=== PATIENT | male | born 1965 | race Caucasian/White ===

== ENCOUNTER 2021-06-30 11:50 | Observation (INO) ==
[2021-06-30] MEDS ORDERED: fentaNYL citrate 100 MCG/2 ML VIAL ONE ×3 (11:56→17:42)
[2021-06-30] MEDS ORDERED: SODIUM CHLORIDE 0.9% 1000ML 1,000 ML IV ONE (11:58)
[2021-06-30] MEDS ORDERED: MoRPHine SULFATE 4 MG/ML 1 ML CARP\\VIAL IV PRN (12:02)
[2021-06-30] MEDS ORDERED: MoRPHine SULFATE 2 MG/ML CARP IV PRN (12:02)
--- NOTE | 2021-06-30 12:02 | Emergency Department Note ---
Impression & Plan Fibula fracture, Tibia fracture ED Provider Note NAME: JENNIFER HUERTAS AGE: 55 SEX: M : 1965 ARRIVES VIA: Ambulance INFORMANT: Patient ED PROVIDER(S): ED TEMP CHIEF COMPLAINT: Left mcmanus pain HPI: Patient is a 55-year-old male who was cutting down a tree and the tree kicked back and caught his left mid mcmanus in between a stump and the tree. He is having severe pain on that left mcmanus. Pain is a 10 out of 10. Denies any headache or neck pain. No chest pain or back pain. No belly pain or pelvic pain. No other extremity pain. Denies any tingling or numbness. Patient was given 100 fentanyl prior to arrival. His leg was only caught for less than several minutes. ROS: See above HPI for pertinent positives & negatives. A total of 10 systems reviewed and were otherwise negative. PAST MEDICAL HISTORY:See Below PAST SURGICAL HISTORY:See Below FAMILY HISTORY:See Below SOCIAL HISTORY:See Below HOME MEDICATIONS:See Below ALLERGIES:See Below VITALS:See Below PHYSICAL EXAMINATION: GENERAL: alert, well appearing, well nourished, no distress, non-toxic HEAD: normal cephalic, atraumatic EYE EXAM: normal conjunctiva, PERRL and EOM's grossly intact OROPHARYNX: no exudate, no erythema, lips, buccal mucosa, and tongue normal and mucous membranes are moist NECK: supple, no nuchal rigidity, no adenopathy, non-tender CHEST: stable to compression anteriorly and posteriorly LUNGS: clear to auscultation. Normal chest wall mechanics HEART: no murmurs, S1 normal and S2 normal ABDOMEN: abdomen soft, non-tender, normo-active bowel sounds, no masses, no rebound or guarding. PELVIS: stable to compression anteriorly and posteriorly BACK: Back is symmetrical on inspection and there is no deformity, no midline tenderness, no CVA tenderness. UPPER EXTREMITIES: full active and passive range of motion of all joints without tenderness to palpation LOWER EXTREMITIES: No tenderness in the bilateral hips. No tenderness throughout the entire right lower extremity. No tenderness in the left femur knee. Obvious deformity with rotation of the left tib-fib laterally. Large hematoma is located medially and anteriorly. DP 2 out of 4. Gross station intact. NEURO EXAM: Normal sensorium, cranial nerves II-XII grossly intact, normal speech, no gross weakness of arms, no gross weakness of legs. GCS: 15. MEDICAL DECISION MAKING: Patient is a 55-year-old male who presents the ER following being brought in by EMS and hit by a tree complaining of severe left tib-fib pain. IV was established blood work was obtained. Labs show mild leukocytosis 12,000. No significant anemia. BMP with a slightly elevated BUN. LFTs bilirubin and l ipase is unremarkable. Covid was negative. X-rays show a midshaft tib-fib fracture. He was neurovascularly intact. Discussed with [facility] orthopedics. They recommended going to the OR. Patient was given IV morphine. Triage Nursing notes reviewed. Limited review of prior medical records performed Vital Signs: reviewed and remarkable for no significant abnormalities Differential diagnosis: Differential diagnoses include major intracranial, cervical, spinal, thoracic, abdominal, pelvic and neurologic injury. Fracture, contusion, sprain, strain, laceration, abrasions included as well. ER treatment provided: See below Diagnostics interpreted by me: ECG: none Cardiac Monitoring: An order was placed for continuous cardiac monitoring. The monitor shows a rate of 64 with sinus rhythm. Laboratory studies: As stated above and show below. Imaging studies: X-rays of the left tib-fib show transverse fracture of both Consultation(s): none Procedures: none Critical Care: None Past Med/Surg History Medical History Asthma seasonal GERD (gastroesophageal reflux disease) Kidney stones Surgical History History of ankle surgery right ankle - tendon repair History of esophagogastroduodenoscopy (EGD) Social History Smoking Status: Never smoker Second Hand Exposure: No; Hx Alcohol Use: No Hx Substance Use: No Preferred Language: Greenlandic Communication Ability: Effective Greeter Required: No Beliefs That Will Affect Care: None Current Living Situation: Spouse Feels Safe at Home: Yes Assistive Devices: Glasses Allergies Allergies Allergy/AdvReac Type Severity Reaction Status Date / Time Penicillins Allergy Severe ANAPHYLACTIC Verified 06/30/21 13:21 SHOCK Home Meds Home Medications Medication Instructions Recorded Confirmed omeprazole 20 mg delayed 20 mg PO QAM 01/14/19 06/30/21 release,disintegrating tablet baclofen 10 mg tablet 10 mg PO DAILY 06/30/21 06/30/21 meloxicam 15 mg tablet 15 mg PO DAILY 06/30/21 06/30/21 rosuvastatin 10 mg tablet 10 mg PO DAILY 06/30/21 06/30/21 Results & Data (ED) Vital Signs Vital Signs - 24 hr 06/30/21 12:00 06/30/21 12:04 06/30/21 12:53 Temperature 36.5 C Temperature Source Oral Pulse Rate 50 L Pulse Rate [Apical] Pulse Rate [Finger] 54 L Pulse Rhythm [Apical] Pulse Strength [Apical] Respiratory Rate 18 16 Respiratory Effort / Characteristics Respiratory Depth Respiratory Pattern Blood Pressure 142/85 H Blood Pressure [Left Arm] 152/74 H Blood Pressure Mean 104 Blood Pressure Mean [Left Arm] 100 Blood Pressure Position [Left Arm] Pulse Oximetry 99 100 100 Oxygen Delivery Method Room Air Room Air Room Air Sepsis Recent Fever Within 48 Hours No Sepsis New/Unexplained Change in Mental Status N/A Sepsis Action Taken by Nursing No Action Required 06/30/21 13:51 06/30/21 17:25 06/30/21 17:35 Temperature 36.2 C L Temperature Source Temporal Artery Scan Pulse Rate Pulse Rate [Apical] 96 H 77 Pulse Rate [Finger] 60 Pulse Rhythm [Apical] Regular Regular Pulse Strength [Apical] Normal Normal Respiratory Rate 16 12 16 Respiratory Effort / Characteristics Non-Labored Spontaneous Non-Labored Spontaneous Respiratory Depth Normal Normal Respiratory Pattern Regular Regular Blood Pressure Blood Pressure [Left Arm] 123/77 164/89 H 158/83 H Blood Pressure Mean Blood Pressure Mean [Left Arm] 92 114 108 Blood Pressure Position [Left Arm] Lying Lying Pulse Oximetry 100 98 97 Oxygen Delivery Method Room Air Room Air Room Air Sepsis Recent Fever Within 48 Hours Sepsis New/Unexplained Change in Mental Status Sepsis Action Taken by Nursing 06/30/21 17:45 06/30/21 17:55 06/30/21 18:05 Temperature Temperature Source Pulse Rate Pulse Rate [Apical] 66 65 65 Pulse Rate [Finger] Pulse Rhythm [Apical] Regular Regular Regular Pulse Strength [Apical] Normal Normal Normal Respiratory Rate 19 17 14 Respiratory Effort / Characteristics Non-Labored Spontaneous Non-Labored Spontaneous Non-Labored Spontaneous Respiratory Depth Normal Normal Normal Respiratory Pattern Regular Regular Regular Blood Pressure Blood Pressure [Left Arm] 168/97 H 145/78 H 142/82 H Blood Pressure Mean Blood Pressure Mean [Left Arm] 120 100 102 Blood Pressure Position [Left Arm] Lying Lying Lying Pulse Oximetry 98 100 100 Oxygen Delivery Method Room Air Room Air Room Air Sepsis Recent Fever Within 48 Hours Sepsis New/Unexplained Change in Mental Status Sepsis Action Taken by Nursing 06/30/21 18:15 Temperature 36.6 C Temperature Source Temporal Artery Scan Pulse Rate Pulse Rate [Apical] 71 Pulse Rate [Finger] Pulse Rhythm [Apical] Regular Pulse Strength [Apical] Normal Respiratory Rate 14 Respiratory Effort / Characteristics Non-Labored Spontaneous Respiratory Depth Normal Respiratory Pattern Regular Blood Pressure Blood Pressure [Left Arm] 134/93 Blood Pressure Mean Blood Pressure Mean [Left Arm] 106 Blood Pressure Position [Left Arm] Lying Pulse Oximetry 100 Oxygen Delivery Method Room Air Sepsis Recent Fever Within 48 Hours Sepsis New/Unexplained Change in Mental Status Sepsis Action Taken by Nursing Laboratory Data Result diagrams: 06/30/21 12:07 06/30/21 12:07 Lab Results 06/30/21 06/30/21 06/30/21 Range/Units 12:07 12:07 12:14 WBC 12.69 H (4.8-10.8) K/uL RBC 4.92 (4.7-6.1) M/uL Hgb 14.4 (14.0-18.0) g/dL Hct 41.2 L (42-52) % MCV 83.7 (80-100) fL MCH 29.3 (25-34) pg MCHC 35.0 (32-36) g/dL RDW Std Deviation 37.8 (36.4-46.3) fL RDW Coeff of Ruddy 12.4 (11.5-14.5) % Plt Count 195 (130-400) K/uL MPV 11.8 H (7.4-10.4) fL Immature Gran % (Auto) 0.2 % Neut % (Auto) 83.6 % Lymph % (Auto) 10.6 % Callahan % (Auto) 4.5 % Eos % (Auto) 0.9 % Baso % (Auto) 0.2 % Neut # (Auto) 10.62 H (1.4-6.5) K/uL Lymph # (Auto) 1.34 (1.2-3.4) K/uL Callahan # (Auto) 0.57 (0.11-0.59) K/uL Eos # (Auto) 0.12 (0-0.5) K/uL Baso # (Auto) 0.02 (0-0.2) K/uL Immature Gran # (Auto) 0.02 (0.00-0.02) K/uL Sodium 137 (136-145) mmol/L Potassium 4.3 (3.5-5.1) mmol/L Chloride 106 (98-107) mmol/L Carbon Dioxide 27 (21-32) mmol/L Anion Gap 4.0 (3-11) BUN 22 H (7-18) mg/dl Creatinine 1.11 (0.6-1.4) mg/dl Est Cr Clr Drug Dosing 86.7 ml/min Est GFR ( Amer) 87.4 ml/min Est GFR (Non-Af Amer) 75.4 ml/min BUN/Creatinine Ratio 19.7 (10-20) Glucose 136 H (70-99) mg/dl Calcium 9.2 (8.5-10.1) mg/dl Total Bilirubin 0.5 (0.2-1) mg/dl AST 25 (15-37) U/L ALT 37 (12-78) U/L Alkaline Phosphatase 92 (45-117) U/L Total Creatine Kinase 357 H (39-308) U/L Total Protein 7.6 (6.4-8.2) gm/dl Albumin 4.2 (3.4-5.0) gm/dl Globulin 3.4 (2.5-4.0) gm/dl Albumin/Globulin Ratio 1.3 (0.9-2) Lipase 87 (73-393) U/L COVID-19 Eval Order Covid19 at [facility] SARS-CoV-2 (PCR) (Negative) 06/30/21 Range/Units 12:14 WBC (4.8-10.8) K/uL RBC (4.7-6.1) M/uL Hgb (14.0-18.0) g/dL Hct (42-52) % MCV (80-100) fL MCH (25-34) pg MCHC (32-36) g/dL RDW Std Deviation (36.4-46.3) fL RDW Coeff of Ruddy (11.5-14.5) % Plt Count (130-400) K/uL MPV (7.4-10.4) fL Immature Gran % (Auto) % Neut % (Auto) % Lymph % (Auto) % Callahan % (Auto) % Eos % (Auto) % Baso % (Auto) % Neut # (Auto) (1.4-6.5) K/uL Lymph # (Auto) (1.2-3.4) K/uL Callahan # (Auto) (0.11-0.59) K/uL Eos # (Auto) (0-0.5) K/uL Baso # (Auto) (0-0.2) K/uL Immature Gran # (Auto) (0.00-0.02) K/uL Sodium (136-145) mmol/L Potassium (3.5-5.1) mmol/L Chloride (98-107) mmol/L Carbon Dioxide (21-32) mmol/L Anion Gap (3-11) BUN (7-18) mg/dl Creatinine (0.6-1.4) mg/dl Est Cr Clr Drug Dosing ml/min Est GFR ( Amer) ml/min Est GFR (Non-Af Amer) ml/min BUN/Creatinine Ratio (10-20) Glucose (70-99) mg/dl Calcium (8.5-10.1) mg/dl Total Bilirubin (0.2-1) mg/dl AST (15-37) U/L ALT (12-78) U/L Alkaline Phosphatase (45-117) U/L Total Creatine Kinase (39-308) U/L Total Protein (6.4-8.2) gm/dl Albumin (3.4-5.0) gm/dl Globulin (2.5-4.0) gm/dl Albumin/Globulin Ratio (0.9-2) Lipase (73-393) U/L COVID-19 Eval Order SARS-CoV-2 (PCR) NEGATIVE (Negative) Administered Medications Fentanyl Citrate (Fentanyl Citrate 100 Mcg/2 Ml Vial) 50 mcg IV Q5M PRN PRN Reason: PACU Use Only-Pain Stop: 06/30/21 22:23 Last Admin: 06/30/21 17:50 Dose: 50 mcg Documented by: [id number] Admin: 06/30/21 17:43 Dose: 50 mcg Documented by: [id number] Morphine Sulfate (Morphine Sulfate 2 Mg/Ml Carp) 2 mg IV Q1H PRN PRN Reason: Moderate Pain (Rating 3,4,5,6) Stop: 07/14/21 12:01 Last Admin: 06/30/21 13:08 Dose: 2 mg Documented by: [id number] Discontinued Medications Bupivacaine HCl (Bupivacaine 0.5 % 5 Mg/1 Ml Mpf 30ml Vial) Confirm Administered Dose 30 ml .ROUTE .STK-MED ONE Stop: 06/30/21 13:42 Last Admin: 06/30/21 16:48 Dose: 30 ml Documented by: [id number] Clindamycin Phosphate (Clindamycin Phos 300 Mg/2 Ml Vial) Confirm Administered Dose 900 mg .ROUTE .STK-MED ONE Stop: 06/30/21 14:26 Last Admin: 06/30/21 14:45 Dose: 900 mg Documented by: [id number] Epinephrine HCl (Epinephrine Inj 1 Mg/Ml Amp) Confirm Administered Dose 1 mg .ROUTE .STK-MED ONE Stop: 06/30/21 13:42 Last Admin: 06/30/21 16:48 Dose: 0.15 mg Documented by: [id number] Fentanyl Citrate (Fentanyl Citrate 100 Mcg/2 Ml Vial) Confirm Administered Dose 100 mcg .ROUTE .STK-MED ONE Stop: 06/30/21 11:57 Last Admin: 06/30/21 11:57 Dose: 100 mcg Documented by: [id number] Sodium Chloride (Nss 1000ml) 1,000 mls @ 999 mls/hr IV .Q1H1M ONE Stop: 06/30/21 12:58 Last Admin: 06/30/21 12:59 Dose: 999 mls/hr Documented by: [id number] Imaging Data Radiologist's Impression: Tibia/Fibula X-Ray 06/30/21 00:00 FL tibia/fibula LT 2V HISTORY: 55 years-old Male LEFT LOWER LEG FX acute fracture of the left tibia and fibula COMPARISON: Tibia and fibula radiographs of same day TECHNIQUE: 5 spot fluoroscopic images of the left tibia and fibula were obtained utilizing 180.2 seconds fluoroscopy time FINDINGS: Status post placement of an intramedullary concha fixating the acute tibial fractures. There is improved near anatomic alignment. There is persistent mild displacement and angulation of the acute distal fibular diaphyseal fracture. IMPRESSION: Fluoroscopic assistance as above. ACT 112: Negative or not required by law. The above report was generated using voice recognition software. It may contain grammatical, syntax or spelling errors. Electronically signed by: Celso Salvador M.D. 06/30/2021 5:06 PM Tibia/Fibula X-Ray 06/30/21 11:58 XR tibia fibula LT 2V HISTORY: 55 years-old Male l tib fib fx acute left leg pain status post trauma COMPARISON: None TECHNIQUE: 3 views of the left tibia and fibula FINDINGS: Acute transverse complete fractures of the mid tibial and fibular shafts with lateral displacement and rotation. Mild associated apex volar angulation with mild posterior displacement. Additional acute nondisplaced oblique fracture involves the proximal tibial diaphysis. Mild associated soft tissue swelling. IMPRESSION: 1. Acute displaced and mildly angulated fractures of the mid shaft tibia and fibula. 2. Acute nondisplaced oblique fracture of the proximal tibial diaphysis. ACT 112: Negative or not required by law. The above report was generated using voice recognition software. It may contain grammatical, syntax or spelling errors. Electronically signed by: Celso Salvador M.D. 06/30/2021 12:51 PM Discharge Plan Visit Data Chief Complaint: Leg Injury/Pain Stated Complaint: Leg Injury ED Provider: Sergio Hernandez Discharge Problem: Fibula fracture, Tibia fracture Patient Disposition: Still a Patient Discharge Instructions Interventions: ED Discharge Assessment Last Done: 06/30/21 13:58 Discharge Problem: Fibula fracture Qualifiers: Encounter type: initial encounter Fibula location: shaft Fracture type: closed Fracture morphology: transverse Fracture alignment: displaced Laterality: left Qualified Code(s): S82.422A - Displaced transverse fracture of shaft of left fibula, initial encounter for closed fracture Tibia fracture Qualifiers: Encounter type: initial encounter Fracture type: closed Fracture alignment: displaced Laterality: left
[2021-06-30 12:28] LABS: Basophils # (auto) 0.02 K/uL (0-0.2); Basophils % (auto) 0.2 %; Eosinophils # (auto) 0.12 K/uL (0-0.5); Eosinophils % (auto) 0.9 %; Hematocrit (blood only) 41.2 % (42-52); Hemoglobin 14.4 g/dL (14.0-18.0); Immature Granulocytes # (auto) 0.02 K/uL (0.00-0.02); Immature Granulocytes % (auto) 0.2 %; Lymphocytes # (auto) 1.34 K/uL (1.2-3.4); Lymphocytes % (auto) 10.6 %; Mean Corpuscular Hemoglobin 29.3 pg (25-34); Mean Corpuscular Volume 83.7 fL (80-100); Mean Platelet Volume 11.8 fL (7.4-10.4); Monocytes # (auto) 0.57 K/uL (0.11-0.59); Monocytes % (auto) 4.5 %; Neutrophils # (auto) 10.62 K/uL (1.4-6.5); Neutrophils % (auto) 83.6 %; Platelet Count 195 K/uL (130-400); RDW Coefficient of Variation 12.4 % (11.5-14.5); RDW Standard Deviation 37.8 fL (36.4-46.3); Red Blood Count 4.92 M/uL (4.7-6.1); White Blood Count 12.69 K/uL (4.8-10.8)
[2021-06-30 12:45] LABS: Albumin Level 4.2 gm/dl (3.4-5.0); BUN Creatinine Ratio 19.7 (10-20); Calcium 9.2 mg/dl (8.5-10.1); Creatinine Clr Calc Pharmacy 86.7 ml/min; Est GFR (African American) 87.4 ml/min; Est GFR (Non-African American) 75.4 ml/min; Potassium 4.3 mmol/L (3.5-5.1)
[2021-06-30 12:49] LABS: Albumin Globulin Ratio 1.3 (0.9-2); Bilirubin,Total 0.5 mg/dl (0.2-1); Globulin 3.4 gm/dl (2.5-4.0); Total Protein 7.6 gm/dl (6.4-8.2)
--- NOTE | 2021-06-30 12:52 | XRay Report ---
XR tibia fibula LT 2V HISTORY: 55 years-old Male l tib fib fx acute left leg pain status post trauma COMPARISON: None TECHNIQUE: 3 views of the left tibia and fibula FINDINGS: Acute transverse complete fractures of the mid tibial and fibular shafts with lateral displacement an d rotation. Mild associated apex volar angulation with mild posterior displacement. Additional acute nondisplaced oblique fracture involves the proximal tibial diaphysis. Mild associated soft tissue swe lling. IMPRESSION: 1. Acute displaced and mildly angulated fractures of the mid shaft tibia and fibula. 2. Acute nondisplaced oblique fracture of the proximal tibial diaphysis. ACT 112: Negative or not required by law. The above report was generated using voice recognition software. It may contain grammatical, syntax o r spelling errors. Electronically signed by: Celso Salvador M.D. 06/30/2021 12:51 PM
[2021-06-30] MEDS ORDERED: ACETAMINOPHEN 1000 MG/100 ML IV IV ONE (13:25)
[2021-06-30] MEDS ORDERED: SUCCINYLCHOLINE CHLORIDE 20 MG/ML 10 ML VIAL IV ONE (13:25)
[2021-06-30] MEDS ORDERED: BUPIVACAINE 0.5 % 5 MG/1 ML MPF 30ML VIAL ONE (13:41)
[2021-06-30] MEDS ORDERED: EPINEPHrine INJ 1 MG/ML AMP ONE (13:41)
[2021-06-30] MEDS ORDERED: MIDAZOLAM HCL 1 MG/ML 2ML VIAL ONE (14:07)
[2021-06-30] MEDS ORDERED: LIDOCAINE 2% 2 ML VIAL/AMP(20MG/ML) INFIL ONE (14:08)
[2021-06-30] MEDS ORDERED: PROPOFOL IV EMULSION 10 MG/ML 20 ML VIAL IV ONE (14:09)
[2021-06-30] MEDS ORDERED: ONDANSETRON INJ 2 MG/ML 2 ML VIAL ONE (14:09)
--- NOTE | 2021-06-30 14:15 | Orthopedic Consultation ---
Date of Consultation June 30, 2021 Assessment & Plan Discussed the diagnosis and treatment options. Surgery is recommended to reduce and stabilize his fractures. Reviewed the risks and benefits of surgery alternatives to surgery and expected outcomes. After reviewing all these elected to proceed with surgery. All questions were answered. Informed sent was signed. He has a penicillin allergy so we will plan on clindamycin for perioperative antibiotics. Plan on Xarelto for postoperative DVT prophylaxis starting tomorrow. Plan on admitting to the hospital after surgery for pain control and monitoring. History of Present Illness Reason for Consultation: Left tib-fib fracture Attending Physician: Marco A Saavedra MD History of Present Illness 55-year-old male, injured his left leg cutting down a tree today around 10:30 AM. Immediate onset of pain and deformity. Brought to the emergency room. X- rays were obtained demonstrating tib-fib fracture on the left as well as a proximal oblique fracture of the tibia minimally displaced. Orthopedics was consulted for further management. Patient was seen and examined. Denies any previous injuries to the left lower extremity. He has a little funny sensation on the plantar aspect of his foot. Otherwise no numbness in the lower extremity. 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 No family history or personal history of DVT or blood clots. Allergies Allergy/AdvReac Type Severity Reaction Status Date / Time Penicillins Allergy Severe ANAPHYLACTIC Verified 06/30/21 13:21 SHOCK Home Medications Medication Instructions Recorded Confirmed Type omeprazole 20 mg delayed 20 mg PO QAM 01/14/19 06/30/21 History release,disintegrating tablet baclofen 10 mg tablet 10 mg PO DAILY 06/30/21 06/30/21 History meloxicam 15 mg tablet 15 mg PO DAILY 06/30/21 06/30/21 History rosuvastatin 10 mg tablet 10 mg PO DAILY 06/30/21 06/30/21 History Patient History Medical History Asthma seasonal GERD (gastroesophageal reflux disease) Kidney stones Surgical History History of ankle surgery right ankle - tendon repair History of esophagogastroduodenoscopy (EGD) Social History Smoking Status: Never smoker Second Hand Exposure: No; Hx Alcohol Use: No Hx Substance Use: No Preferred Language: Nepali Communication Ability: Effective Lithographic Etcher Required: No Beliefs That Will Affect Care: None Current Living Situation: Spouse Feels Safe at Home: Yes Assistive Devices: Glasses Physical Exam Physical Exam: On exam he is resting comfortably supine in the hospital bed no acute distress. Left lower extremity exam reveals the leg to be splinted with a pillow and muscle unwrapped exposing the anterior aspect of the lower leg. Exposed skin shows no skin wounds. Distal lower extremity is slightly externally rotated. Able to wiggle his toes. Unable to fire tib ant gastrocsoleus secondary to pain. Palpable dorsalis pedis and posterior tibial pulses. He has some tenderness proximally over the tibia as well as the midshaft of the tibia at his fracture sites. Results & Data ([facility]) Vital Signs (Past 12 Hours) Vital Signs Temp Pulse Pulse Resp BP BP Pulse Ox 06/30/21 13:51 60 16 123/77 100 06/30/21 12:53 54 L 16 152/74 H 100 06/30/21 12:04 100 06/30/21 12:00 36.5 C 50 L 18 142/85 H 99 Diagnostic Findings X-rays show a mid shaft tibia and fibula fractures with displacement and rotation of the distal segment relative to the proximal segment. Additionally there is a oblique fracture through the proximal metaphyseal diaphyseal junction of the tibia with mild displacement
[2021-06-30] MEDS ORDERED: ONDANSETRON INJ 2 MG/ML 2 ML VIAL IV PRN ×2 (14:22→18:33)
[2021-06-30] MEDS ORDERED: HYDROmorphone INJ 2 MG/ML SYR/VIAL IV PRN (14:22)
[2021-06-30] MEDS ORDERED: ATROPINE SULFATE 0.1 MG/ML 10ML SYR IV PRN (14:22)
[2021-06-30] MEDS ORDERED: ePHEDrine sulfate 50 MG/ML AMP IV PRN (14:22)
--- NOTE | 2021-06-30 14:22 | Anesthesiology Consultation ---
Date of Service June 30, 2021 Assessment & Plan ASA ASA2 Proposed Anesthesia Anesthesia Type: General Risk / Benefits Reviewed With: PT / POA / Parent / Guardian, Accepts Plan and Informed Consent Obtained History Surgery Operation Date: 06/30/21 14:30 Proposed Procedures p ORIF Tibial Plateau Fracture(Left) - Marco A Saavedra MD Height/Weight Height: 5 ft 10 in Weight: 89.6 kg Allergies Allergy/AdvReac Type Severity Reaction Status Date / Time Penicillins Allergy Severe ANAPHYLACTIC Verified 06/30/21 13:21 SHOCK Medications Home Medications Medication Instructions Recorded Confirmed Last Taken omeprazole 20 mg delayed 20 mg PO QAM 01/14/19 06/30/21 06/30/21 release,disintegrating tablet baclofen 10 mg tablet 10 mg PO DAILY 06/30/21 06/30/21 06/30/21 meloxicam 15 mg tablet 15 mg PO DAILY 06/30/21 06/30/21 06/30/21 rosuvastatin 10 mg tablet 10 mg PO DAILY 06/30/21 06/30/21 06/30/21 Active Medications Generic Name Dose Route Start Last Admin Trade Name Freq PRN Reason Stop Dose Admin Morphine Sulfate 2 mg 06/30/21 12:02 06/30/21 13:08 Morphine Sulfate 2 Mg/Ml Carp IV 07/14/21 12:01 2 mg Q1H PRN Administration Moderate Pain (Rating 3,4,5,6) NPO Date Last Intake of Fluids: 06/30/21 Time Last Intake of Fluids: 00:00 Date Last Intake of Solids: 06/30/21 Time Last Intake of Solids: 00:00 Past Medical History Medical History Asthma seasonal GERD (gastroesophageal reflux disease) Kidney stones Exercise / Class Metabolic Activity 1 > 8 Run/Swim/Ski/Tennis Past Surgical History Surgical History History of ankle surgery right ankle - tendon repair History of esophagogastroduodenoscopy (EGD) Past Anesthesia History No Hx of Anesthesia Complications and No Family Hx of Anesthesia Complications History of PONV No Hx of PONV and No Hx of Motion Sickness Social History Smoking Status: Never smoker Hx Alcohol Use: No Hx Substance Use: No substance use type: does not use Review of Systems denies fever/cough/ colds/ chest pain/ SOB/ IKER denies IKER Physical Exam Vital Signs Last Vital Signs Temp 36.5 C 06/30/21 12:00 Pulse 60 06/30/21 13:51 Resp 16 06/30/21 13:51 BP 123/77 06/30/21 13:51 Pulse Ox 100 06/30/21 13:51 ENMT Mouth: no TMJ abnormality and no dentition abnormality Thyromental Distance: > or= 3.5 Finger Breadths Mallampati Class: II Neck neck extension not limited Respiratory normal respiratory effort; no respiratory distress Auscultation: lungs clear to auscultation bilaterally Cardiovascular Rate/Rhythm: regular rate and regular rhythm Neurologic moves all extremities Psychiatric Orientation: alert and oriented x 3 Testing Laboratory Results 06/30/21 12:07 06/30/21 12:07
[2021-06-30] MEDS ORDERED: CLINDAMYCIN PHOS 300 MG/2 ML VIAL ONE (14:25)
[2021-06-30] MEDS ORDERED: CLINDAMYCIN 900 MG in DEXTROSE 5% 50 ML IV ONE (14:30)
[2021-06-30] MEDS ORDERED: ePHEDrine sulfate 50 MG/ML SYR ONE (15:16)
[2021-06-30] MEDS ORDERED: GLYCOPYRROLATE 0.2 MG/ML VIAL ONE (15:41)
[2021-06-30] MEDS ORDERED: NEOSTIGMINE METHYLSULFATE 1 MG/ML 10ML VIAL ONE (15:41)
[2021-06-30] MEDS ORDERED: DEXAMETHASONE SOD INJ 4 MG/ML VIAL ONE (15:44)
[2021-06-30] MEDS ORDERED: KETOROLAC 30 MG/ML VIAL ONE (16:56)
--- NOTE | 2021-06-30 16:57 | Post Operative Brief Note ---
Immediate Post Op Note v1 Date of Surgery June 30, 2021 Pre & Post Diagnosis Operation Date: 06/30/21 14:30 Pre-Op Diagnosis: Left segmental tibia fracture and - left fibula fracture Post-Op Diagnosis: Left segmental tibia fracture and - left fibula fracture I identified the patient and participated in the time-out.: Yes Procedure Operation Date: 06/30/21 14:30 Actual Procedures p Open Reduction, Internal Fixation and Intramedullary rodding of Left Segmental Tibia Fracture (Left) 22 modified should be added to the case due to increased difficulty from the segmental tibia fracture - Marco A Saavedra MD Surgeon Marco A Saavedra MD First Grade Teacher Jami Hart PA-C Estimated Blood Loss 50 Findings Consistent with Post-Op Diagnosis Drains Waller Catheter (Placed by Beni Barraza RN without difficulty, urine yellow and clear.) Anesthesia Type General Complications none Disposition Disposition: Recovery Room
--- NOTE | 2021-06-30 17:08 | Fluoroscopy Report ---
FL tibia/fibula LT 2V HISTORY: 55 years-old Male LEFT LOWER LEG FX acute fracture of the left tibia and fibula COMPARISON: Tibia and fibula radiographs of same day TECHNIQUE: 5 spot fluoroscopic images of the left tibia and fibula were obtained utilizing 180.2 seco nds fluoroscopy time FINDINGS: Status post placement of an intramedullary concha fixating the acute tibial fractures. There is improved near anatomic alignment. There is persistent mild displacement and angulation of the acute distal fi bular diaphyseal fracture. IMPRESSION: Fluoroscopic assistance as above. ACT 112: Negative or not required by law. The above report was generated using voice recognition software. It may contain grammatical, syntax o r spelling errors. Electronically signed by: Celso Salvador M.D. 06/30/2021 5:06 PM
--- NOTE | 2021-06-30 17:25 | Operative Report ---
Post Operative Report Pre & Post Diagnosis Operation Date: 06/30/21 14:30 Pre-Op Diagnosis: Left tibia-fibula fracture Post-Op Diagnosis: Left tibia-fibula fracture I identified the patient and participated in the time-out.: Yes Procedure Operation Date: 06/30/21 14:30 Actual Procedures p Open Reduction, Internal Fixation Left Tibia and Fibula Fractures(Left) - Marco A Saavedra MD Surgeon Marco A Saavedra MD Senior Product Integrity Engineer Jami Hart PA-C; No fellow or resident available Estimated Blood Loss 50 Findings Consistent with Post-Op Diagnosis Specimens None Anesthesia Type General Description of Procedure Patient was taken to the operating room and placed under general anesthesia. Time out was performed. He was prepped and draped in routine sterile fashion. He was given 900 mg of clindamycin preoperatively which will be continued postoperatively for 24 hours. I was present during the entire case and assisted with positioning, tissue retraction, reduction of fracture, implantation of hardware, closure and splinting. Please see Dr. Saavedra's operative report for further detail. Patient was awakened and transferred to the recovery room in stable condition. I attest to the content of the Intraoperative Record and any orders documented therein. Any exceptions are noted below.
[2021-06-30] MEDS: fentaNYL citrate 100 MCG/2 ML VIAL IV PRN ×2 (17:43→17:50)
--- NOTE | 2021-06-30 17:47 | Anesthesiology Progress Note ---
Date of Service June 30, 2021 Anesthesia Post Procedure Vital Signs Vital Signs: Temp Pulse Pulse Pulse Resp BP BP 06/30/21 17:45 66 19 168/97 H 06/30/21 17:35 77 16 158/83 H 06/30/21 17:25 36.2 C L 96 H 12 164/89 H 06/30/21 13:51 60 16 123/77 06/30/21 12:53 54 L 16 152/74 H 06/30/21 12:04 06/30/21 12:00 36.5 C 50 L 18 142/85 H Pulse Ox 06/30/21 17:45 98 06/30/21 17:35 97 06/30/21 17:25 98 06/30/21 13:51 100 06/30/21 12:53 100 06/30/21 12:04 100 06/30/21 12:00 99 Pain Intensity Left Leg: Pain Intensity: 10 Transfer of Care Handoff Completed per policy Notes Mental Status: alert / awake / arousable and participated in evaluation Patient Amnestic to Procedure: Yes Nausea / Vomiting: adequately controlled Pain: adequately controlled Airway Patency, RR, SpO2: stable & adequate BP & HR: stable & adequate Hydration State: stable & adequate Anesthetic Complications: no major complications apparent and Pt Satisfied with anesthetic care
[2021-06-30] MEDS ORDERED: METOCLOPRAMIDE HCL INJ 5 MG/ML 2 ML VIAL IV PRN (18:33)
[2021-06-30] MEDS ORDERED: oxyCODONE HCL IR 5 MG TAB (IMMEDIATE RELEASE) PO PRN (18:33)
[2021-06-30] MEDS ORDERED: HYDROmorphone INJ 1 MG/ML SYRINGE IV PRN (18:33)
[2021-06-30] MEDS ORDERED: NALOXONE HCL 0.4 MG/1 ML VIAL/CARP IV PRN (18:33)
[2021-06-30] MEDS ORDERED: bisacodyL 10 MG SUPP PR PRN (18:33)
[2021-06-30] MEDS ORDERED: MAGNESIUM HYDROXIDE SUSP 30 ML UDC PO PRN (18:33)
[2021-06-30] MEDS ORDERED: TAMSULOSIN HCL 0.4 MG CAP PO PRN (18:33)
[2021-06-30] MEDS ORDERED: HYDROmorphone INJ 0.5 MG/0.5 ML SYR IV PRN (18:33)
[2021-06-30] MEDS: SODIUM CHLORIDE 0.9% 1000ML 1,000 ML IV SCH (18:57)
[2021-06-30] MEDS: DOCUSATE SODIUM 100 MG CAP PO SCH (20:36)
[2021-06-30] MEDS ORDERED: SENNA 8.6 MG TAB PO SCH (21:00)
[2021-06-30] MEDS: ACETAMINOPHEN 500 MG TAB PO SCH (22:17)
[2021-06-30] MEDS: CLINDAMYCIN 600 MG in DEXTROSE 5% 50 ML IV SCH (22:17)
[2021-07-01] MEDS: SODIUM CHLORIDE 0.9% 1000ML 1,000 ML IV SCH (05:33)
[2021-07-01] MEDS: ACETAMINOPHEN 500 MG TAB PO SCH (05:35)
[2021-07-01 06:32] LABS: Hemoglobin 12.4 g/dL (14.0-18.0); Mean Corpuscular Hemoglobin 29.7 pg (25-34); Mean Corpuscular Hgb Conc 34.4 g/dL (32-36); Mean Corpuscular Volume 86.1 fL (80-100); Mean Platelet Volume 11.8 fL (7.4-10.4); Platelet Count 190 K/uL (130-400); RDW Coefficient of Variation 12.6 % (11.5-14.5); Red Blood Count 4.18 M/uL (4.7-6.1); White Blood Count 12.06 K/uL (4.8-10.8)
[2021-07-01 07:08] LABS: BUN Creatinine Ratio 13.5 (10-20); Calcium 8.2 mg/dl (8.5-10.1); Creatinine Clr Calc Pharmacy 90.8 ml/min; Est GFR (African American) 92.4 ml/min; Est GFR (Non-African American) 79.7 ml/min; Potassium 4.4 mmol/L (3.5-5.1)
[2021-07-01] MEDS: DOCUSATE SODIUM 100 MG CAP PO SCH (08:21)
[2021-07-01] MEDS: CLINDAMYCIN 600 MG in DEXTROSE 5% 50 ML IV SCH (08:24)
[2021-07-01] MEDS ORDERED: ROSUVASTATIN CALCIUM 10 MG TAB PO SCH (09:00)
[2021-07-01] MEDS ORDERED: RIVAROXABAN 10 MG TABLET PO SCH (09:00)
[2021-07-01] MEDS ORDERED: PANTOprazole 40 MG TAB PO SCH (09:00)
[2021-07-01] MEDS ORDERED: MULTIVITAMIN TAB PO SCH (09:00)
[2021-07-01] MEDS ORDERED: BACLOFEN 10 MG TAB PO SCH (09:00)
--- NOTE | 2021-07-01 10:52 | Progress Notes ---
DATE OF NOTE: 07/01/2021 SUBJECTIVE: The patient was seen on a.m. rounds. Postop day #1 status post intramedullary nail for a segmental left tibia fracture and fibula fracture, both closed. He has done well overnight. He sa ys the last thing he took for pain was Tylenol last night. He says his leg feels "perfect" this morn ing. Denies any fevers or chills. The nausea, he had a yesterday after surgery is resolved and he h as been able to tolerate an oral diet. OBJECTIVE: Left lower extremity exam reveals the dressing to be clean, dry and intact. The splint i s fitting him well. His exposed toes are warm and well perfused. Sensory intact to light touch over the toes. He is able to do a straight leg raise. He is able to flex his knee up to 85 degrees. LABORATORY DATA: Results reviewed. Labs this morning show H and H of 12 and 36. White count is mild ly elevated at 12, appropriate for postoperative day 1 after orthopedic surgery. PLAN: Patient will work with physical therapy this morning. He can discharge home after physical th erapy assuming that they feel he is safe for discharge. He will be on Xarelto for 30 days for DVT pr ophylaxis. Nonweightbearing for 4 weeks. Follow up in [address] Saavedra for splint remova l and x-rays out of the splint. Job ID: [id number]
--- NOTE | 2021-07-01 11:00 | Discharge Summary ---
Date of Service July 01, 2021 Discharge Data Consultations 06/30/21 12:40 ED Decision to Admit Stat Procedures Performed Operation Date: 06/30/21 14:30 Actual Procedures p Open Reduction, Internal Fixation Left Tibia and Fibula Fractures(Left) - Marco A Saavedra MD Hospital Course (1) Tibia fracture: Patient was admitted to [facility] on June 30, 2021 after injuring his left leg at home while cutting down trees. He was cutting trees down and a tree rolled onto his left leg and pinned it between another tree. He had immediate pain, deformity and inability to weight bear. He was brought to the emergency room, where x-rays were taken and he was found to have a left closed tib/fib fracture. Orthopedics was asked to see the patient for further evaluation. Patient was seen and evaluated by Dr. Saavedra. Surgical intervention was recommended, patient agreed to proceed with surgery. He was made NPO and place on the OR schedule. He then underwent an intramedullary rodding of his left tibia fracture. Surgery was performed with general anesthesia. He was given 900mg IV Clindamycin for surgical prophylaxis. This was continued for 24 hours after surgery. He tolerated the procedure well without any intra-operative complications. Postoperatively, he was allowed out of bed, non weight bearing left lower extremity. He was given his regular diet which he tolerated after surgery, he did develop some slight nausea postoperatively but that resolved quickly. He was given po Tylenol, oxycodone and IV dilaudid for pain control postoperatively. His pain was well controlled with oral tylenol. OT and PT consults were obtained. He was safe out of bed with crutches and non weight bearing. He was placed in a splint and advised to ice and elevate his left leg above his heart. Plan was for him to be on Xarelto 10mg daily x 4 weeks after surgery for DVT prophylaxis. However, patient had a $500 out of pocket expense for this medication with his insurance, and requested alternative options. Lovenox was somewhat cheaper, and he agreed to fill a 2 week prescription. He was also instructed to wear teds on the right leg and AV impulse boots during his inpatient stay. All questions were answered, his dressings remained dry and did not need changed while in the hospital. Due to his pain control, safety out of bed, he was discharged to his home in stable condition on July 01, 2021. (2) Fibula fracture: see above
--- NOTE | 2021-07-02 08:47 | Operative Report (OR) ---
PREOPERATIVE DIAGNOSES: Left segmental tibia fracture and left fibula fracture, closed. POSTOPERATIVE DIAGNOSES: Left segmental tibia fracture and left fibula fracture, closed. OPERATION: Open reduction and internal fixation and intramedullary rodding of left segmental tibia fracture. A 22 modifier should be added to the IM nail CPT code due to the increased complexity of the operation as a result of the segmental tibia fracture. SURGEON: Marco A Saavedra MD SEMICONDUCTOR TECHNICIAN SURGEON: Jami Hart PA-C. No resident or fellow was available to assist. ESTIMATED BLOOD LOSS: 50 mL SPECIMENS: None. COMPLICATIONS: None. IMPLANTS: 1. Synthes 28 mm titanium 3.5 mm cortical screw. 2. A 10 x 345 mm tibial nail. 3. Four cross locking screws measuring 5 mm in diameter with lengths of 42, 36, 42, and 46. 4. Titanium end cap 5 mm. INDICATIONS: Patient is a 55-year-old male who was cutting down a tree today when the tree fell over and caught his leg between it and another tree stump. It snapped his leg in half. He was brought to the Emergency Room where x-rays demonstrated a tib-fib fracture through the midshaft as well as an oblique fracture at the proximal tibia consistent with a segmental tibia fracture. I had a long discussion with the patient about the severity of his injury. Surgery was recommended to reduce and stabilize the fracture, promote healing and function. After reviewing all the risks and benefits of surgery, elected to proceed. All questions were answered, informed consent was signed. OPERATIVE FINDINGS: The proximal segmental tibia fracture was stabilized with a front to back screw along the medial cortex outside of the path of the nail. We then placed a 10 mm concha down the tibia and secured it with 2 cross locking screws proximally and 2 cross locking screws distally from medial to lateral. DESCRIPTION OF OPERATION: The patient was identified in the preoperative holding area where his surgical site was marked. He was brought back to the main operating room where general anesthesia was delivered on the hospital bed. He was then carefully moved onto the operating room OSI flat radiolucent table. Waller catheter was placed. A bump was placed underneath the ipsilateral hip. All bony prominences were padded. Perioperative antibiotics were administered. He was prepped and draped in the usual sterile fashion. Prior to incision, multidisciplinary timeout was called. All in room were in agreement. We began by placing a bump underneath the midshaft fracture site and inspecting the proximal oblique fracture. I was concerned that if I did not fix this fracture, it would displace during opening, reaming or insertion of the nail. Therefore, I used fluoroscopy to localize the optimal site for a front to back screw perpendicular to the fracture. Once this was localized under fluoroscopy, I then made a small 1 cm stab incision and used a hemostat to dissect through subcutaneous tissues down to the bone. A 2.5 mm drill was optimized on the fluoroscopic views to be perpendicular to the fracture. We also optimized the starting location and direction, so it would be outside of the path of the nail. I then drilled bicortically and measured. It was for a 28 mm screw. The screw was then placed without difficulty. I then attempted to manipulate the proximal fracture fragment and it was completely stable. Therefore, a second screw was not felt to be needed. Next, the radiolucent triangle was placed under the knee and the knee was flexed up. A 4 cm long incision was made directly over the midline of the patellar tendon. I dissected down through subcutaneous tissues to the level of the paratenon. Small flaps were raised to facilitate closure at the end of the case. I then incised through the paratenon and the patellar tendon with a deep knife. We then optimized our starting position on the AP fluoroscopic view. Once this was complete, we then moved the C-arm to the lateral view and further checked our starting point. Once this was optimized, we drilled the guidewire into the proximal tibia. We then placed our opening reamer. The tip of the guidewire was then bent slightly and then passed down through the proximal tibia to the level of the fracture. Great care was taken to ensure that the guidewire passed lateral to the previously placed screw. Next, the fracture was closed reduced. Once the reduction was anatomic, the guidewire was passed across the fracture site and then tapped down into the center-center position of the ankle. We then measured and measurement came for a 345 mm nail. We then placed our 8.5 mm reamer and reamed down to the ankle, holding the fracture reduced. We reamed up by ones until we got to 10.5 and then reamed by 0.5 mm increments until we got to 11.5. With this diameter reamer, we had quite a bit of cortical chatter through the isthmus and therefore I elected to use a 10 mm nail. This was opened up on the back table. We then passed it down over the guidewire and tapped it all the way down to the ankle. Fracture was held reduced while we passed this down. We also ensured that the rotation of the foot was appropriate relative to the knee in the proximal leg. Next, the C-arm was used with perfect circles technique to place two medial to lateral cross locking screws just above the ankle. Once this was complete, we then backslapped the fracture slightly to compress it. We then placed 2 medial to lateral screws through the outrigger device. These measured a 42 and 46 mm respectively. Once this was complete, the outrigger was removed. We checked a lateral view and he came to a 5 mm end cap. This was placed into the top of the nail. We then took our final fluoroscopic images and I was very happy with our reduction. The proximal fracture had not displaced at any portion of the procedure. Our nail length was appropriate as was our cross locking screw lengths. We then irrigated out all of our wounds with copious amounts of normal saline. The patellar tendon and paratenon was run with an 0 Vicryl suture. The deep dermis was closed with a 2-0 Vicryl suture. Trego were used for the skin. The patient was placed in a posterior and U plaster slab splint. He was then awoken from anesthesia and transferred to the recovery room in stable condition. POSTOPERATIVE COURSE: The patient will be discharged from the recovery room. He will be nonweightbearing for the next 4 to 6 weeks. He will transition to a Cam boot 2 weeks after surgery. He will be on Xarelto for DVT prophylaxis for 30 days, 10 mg once daily. Job ID: [id number] [facility]
== END 2021-07-01 13:40 | disposition home or self-care (01) ==
LOC: ED 11:50 → OR 13:58 → 3E 13:58